=== PATIENT | female | born 1990 | race Caucasian/White ===

== ENCOUNTER → 2016-12-14 | Day surgery (SDC) | payer MEDICAID, OTHER ==
[2016-12-13 11:10] LABS: HEMATOCRIT 41.1 % (36.0-47.0); HEMOGLOBIN 13.7 g/dL (12.0-15.5); MEAN CORPUSCULAR HEMOGLOBIN 29.6 pg (27.0-33.4); MEAN CORPUSCULAR HGB CONC 33.3 g/dL (32.0-36.0); MEAN CORPUSCULAR VOLUME 89 fl (80-97); RED BLOOD COUNT 4.63 10^6/uL (3.72-5.28); RED CELL DISTRIBUTION WIDTH 14.6 % (11.5-14.0); WHITE BLOOD COUNT 7.4 10^3/uL (4.0-10.5)
[2016-12-13 11:16] LABS: APPEARANCE,URINE CLEAR; BILIRUBIN,URINE NEGATIVE (NEGATIVE); GLUCOSE, URINE NEGATIVE (NEGATIVE); KETONES,URINE NEGATIVE (NEGATIVE); LEUKOCYTE ESTERASE,URINE TRACE (NEGATIVE); NITRITE,URINE NEGATIVE (NEGATIVE); PROTEIN,URINE NEGATIVE (NEGATIVE); URINE SPECIFIC GRAVITY 1.005; UROBILINOGEN,URINE NEGATIVE mg/dL (<2.0)
[~2016-12-14] MED LIST: ALBUTEROL SULFATE 0.083% NEB 2.5 MG/3 ML AMPUL NEB ONE; FAMOTIDINE INJ/PF 20 MG/2 ML SDV IV ONE; LIDOCAINE 0.5% INJ-PF (5 MG/ML) 50 ML SDV INJ PRN; RINGERS SOLUTION,LACTATED 1,000 ML IV PRN; SCOPOLAMINE HYDROBROMIDE 1.5 MG PATCH.TD72 ONE
[2016-12-14 08:16] VITALS: BP 126/78
== END ==
LOC: OROUT 06:51
PROVIDERS: ATTEND Obstetrics & Gynecology
DX: Z30.2 Encounter for sterilization (principal); F17.210 Nicotine dependence, cigarettes, uncomplicated; Z53.9 Procedure and treatment not carried out, unspecified reason
CPT/HCPCS: 86900; 86901; 36415 ×2; 86850; 84702; 85027; 81005; 81025; J3490; S0028

== ENCOUNTER 2017-04-19 06:42 | Day surgery (SDC) | payer MEDICAID ==
[2017-04-16 09:17] LABS: HEMATOCRIT 39.8 % (36.0-47.0); HEMOGLOBIN 13.4 g/dL (12.0-15.5); HGB HCT DIFFERENCE 0.4; MEAN CORPUSCULAR HEMOGLOBIN 29.5 pg (27.0-33.4); MEAN CORPUSCULAR HGB CONC 33.6 g/dL (32.0-36.0); MEAN CORPUSCULAR VOLUME 88 fl (80-97); RED BLOOD COUNT 4.53 10^6/uL (3.72-5.28); RED CELL DISTRIBUTION WIDTH 14.2 % (11.5-14.0); WHITE BLOOD COUNT 7.2 10^3/uL (4.0-10.5)
[2017-04-16 09:30] LABS: APPEARANCE,URINE CLEAR; BILIRUBIN,URINE NEGATIVE (NEGATIVE); GLUCOSE, URINE NEGATIVE (NEGATIVE); KETONES,URINE NEGATIVE (NEGATIVE); LEUKOCYTE ESTERASE,URINE NEGATIVE (NEGATIVE); NITRITE,URINE NEGATIVE (NEGATIVE); PROTEIN,URINE NEGATIVE (NEGATIVE); UROBILINOGEN,URINE NEGATIVE mg/dL (<2.0)
[2017-04-16 09:40] LABS: URINE SPECIFIC GRAVITY 1.008
[~2017-04-19 06:42] MED LIST changes: -ALBUTEROL SULFATE 0.083% NEB 2.5 MG/3 ML AMPUL NEB ONE; -FAMOTIDINE INJ/PF 20 MG/2 ML SDV IV ONE; +LACTATED RINGERS 1000 ML IV PRN; -LIDOCAINE 0.5% INJ-PF (5 MG/ML) 50 ML SDV INJ PRN; +LIDOCAINE 0.5% INJ-PF (5 MG/ML) 50 ML SDV SUBCUT PRN; -RINGERS SOLUTION,LACTATED 1,000 ML IV PRN; -SCOPOLAMINE HYDROBROMIDE 1.5 MG PATCH.TD72 ONE
[2017-04-19] MEDS ORDERED: ALBUTEROL SULFATE 0.083% NEB 2.5 MG/3 ML AMPUL NEB ONE (07:19)
[2017-04-19] MEDS ORDERED: FENTANYL CITRATE INJ/PF 100 MCG/2 ML AMPUL ONE ×2 (07:19→08:25)
[2017-04-19] MEDS ORDERED: ACETAMINOPHEN 100 ML IV ONE (07:20)
[2017-04-19] MEDS ORDERED: MIDAZOLAM 2 MG/2 ML INJ ONE (07:20)
[2017-04-19] MEDS ORDERED: MORPHINE SULFATE 10 MG/ML INJ ONE (07:20)
[2017-04-19] MEDS ORDERED: PROPOFOL INJ 200 MG/20 ML VIAL IV ONE (07:20)
[2017-04-19] MEDS ORDERED: FAMOTIDINE INJ/PF 20 MG/2 ML SDV IV ONE (07:21)
[2017-04-19] MEDS ORDERED: CEFAZOLIN INJ 1 GM VIAL ONE (07:40)
[2017-04-19] MEDS ORDERED: SCOPOLAMINE HYDROBROMIDE 1.5 MG PATCH.TD72 TD ONE (07:45)
[2017-04-19] MEDS ORDERED: PROMETHAZINE HCL INJ 25 MG/1 ML VIAL IV PRN ×2 (08:21)
[2017-04-19] MEDS ORDERED: MORPHINE SULFATE 10 MG/ML INJ IV PRN (08:21)
[2017-04-19] MEDS ORDERED: MEPERIDINE HCL/PF INJ 25 MG/1 ML DISP.SYRIN IV PRN (08:21)
[2017-04-19] MEDS ORDERED: FENTANYL CITRATE INJ/PF 100 MCG/2 ML AMPUL IV PRN ×3 (08:21)
[2017-04-19] MEDS ORDERED: DIPHENHYDRAMINE HCL 50 MG/ML VIAL IV PRN (08:21)
[2017-04-19] MEDS ORDERED: OXYCODONE-ACETAMINOPHEN 5-325 MG TABLET PO PRN ×4 (08:21→09:06)
[2017-04-19] MEDS ORDERED: MORPHINE SULFATE 10 MG/ML INJ IM PRN (09:05)
[2017-04-19] MEDS ORDERED: IBUPROFEN 800 MG TABLET PO PRN (09:05)
[2017-04-19 10:14] VITALS: BP 126/79
[2017-04-19] MEDS ORDERED: ROCURONIUM BROMIDE INJ 50 MG/5 ML VIAL IV ONE (14:21)
[2017-04-19] MEDS ORDERED: LIDOCAINE 2% INJ-PF (20 MG/ML) 10 ML AMPUL ONE (14:21)
[2017-04-19] MEDS ORDERED: NEOSTIGMINE METHYLSULFATE 10 MG/10 ML VIAL ONE (14:21)
[2017-04-19] MEDS ORDERED: KETOROLAC TROMETHAMINE 60 MG/2 ML SDV ONE (14:21)
[2017-04-19] MEDS ORDERED: DEXAMETHASONE SOD PHOSPHATE INJ 4 MG/1 ML VIAL ONE (14:21)
[2017-04-19] MEDS ORDERED: PHENYLEPHRINE HCL INJ/PF 10 MG/1 ML SDV ONE (14:21)
[2017-04-19] MEDS ORDERED: SUCCINYLCHOLINE CHLORIDE INJ 200 MG/10 ML VIAL ONE (14:21)
[2017-04-19] MEDS ORDERED: GLYCOPYRROLATE INJ 0.4 MG/2 ML VIAL ONE (14:21)
[2017-04-19] MEDS ORDERED: ONDANSETRON HCL INJ/PF 4 MG/2 ML SDV ONE (14:21)
--- NOTE | 2017-05-29 10:23 | OPERATIVE REPORT E ---
Operative Report NAME: REJI DELGADO : 1990 AGE: 26Y DATE OF SURGERY: 04/19/2017 ROOM: PREOPERATIVE DIAGNOSIS: Patient desiring sterilization. POSTOPERATIVE DIAGNOSIS: Patient desiring sterilization. SURGEON: Enrrique Calzada D.O. ARCHITECTURAL TECHNICIAN: None. PROCEDURE: Bilateral salpingectomy. ANESTHESIA: General endotracheal anesthesia. ESTIMATED BLOOD LOSS: Less than 25 mL. PATHOLOGY: Bilateral fallopian tubes. FINDINGS: Normal pelvic anatomy. DESCRIPTION OF PROCEDURE: The patient was taken to the operating room where she was placed in the dorsal supine position upon the operating room table. She was then prepped and draped in normal sterile fashion after a general endotracheal anesthesia was administered. She was placed in the dorsal lithotomy position. An open-sided speculum was then placed inside the patient's vagina. The cervix was easily visualized and grasped upon the anterior lip with a single-toothed tenaculum. An Amelia uterine manipulator was placed inside the uterus without difficulty. The single-toothed tenaculum and speculum were then removed from the patient's vagina. The surgeon then changed gloves. A 5 mm incision was made at the base of the patient's umbilicus where a 5 mm direct Optiview scope was passed through this incision and the peritoneal cavity. Once inside the peritoneal cavity, CO2 gas was turned on and opening pressures were noted to be less than 5. The patient's abdomen was then allowed to fill with CO2 gas. Following this, a 5 mm incision with a 5 mm port was placed in the left lower quadrant and the right lower quadrants under direct visualization without evidence of trauma or injury. Following this, using the Harmonic device, a bilateral salpingectomy was performed with excellent hemostasis. The tubes were removed through the ports in their entirety. The patient's abdominal pressure was taken down to approximately 5 and revealed excellent hemostasis of the pedicle sites. Following this, all ports and gas and instruments were removed from the patient's abdomen. The skin was then closed with Dermabond. Then, the uterine manipulator was removed without difficulty. At this point in time, the procedure was terminated. All sponge, lap, and needle counts were correct x2. The patient tolerated the procedure well. The patient was taken to the recovery room in stable condition. DICTATING PHYSICIAN: Enrrique Calzada DO [id number] PHY#: [id number] ID: [id number] JOB#: [id number] ACCT: [id number] cc:Enrrique Calzada D.O. >
== END 2017-04-19 10:10 | disposition home or self-care (01) ==
LOC: OROUT 06:42
PROVIDERS: ATTEND Obstetrics & Gynecology
PROC: 0UT74ZZ Resection of Bilateral Fallopian Tubes, Percutaneous Endoscopic Approach (ICD-10-PCS; principal; 2017-04-19 07:30)
DX: Z30.2 Encounter for sterilization (principal); F17.210 Nicotine dependence, cigarettes, uncomplicated
CPT/HCPCS: 36415; 85027; 81005; 81025; 88302 ×2; 58661; J2250; J0690; J3490 ×3; J1100; J1885; J3010; J2270; J2370; J0330; J2405; J2704; S0028; J0131; 840

== ENCOUNTER → 2017-05-07 | Outpatient (CLI) | payer MEDICAID ==
--- NOTE | 2017-05-07 16:09 | RADIOLOGY REPORT (SQ) ---
EXAM DESCRIPTION: KNEE RIGHT 4 VIEWS COMPLETED DATE/TIME: 05/07/2017 2:23 pm REASON FOR STUDY: PAIN IN RIGHT KNEE COMPARISON: None. TECHNIQUE: Four views study of the right knee LIMITATIONS: None. FINDINGS: No acute fracture identified. Bony structures and joint spaces intact. IMPRESSION: No acute fractures identified. TECHNICAL DOCUMENTATION: JOB ID: [id number] [employer]- All Rights Reserved
--- NOTE | 2017-05-07 16:10 | RADIOLOGY REPORT (SQ) ---
EXAM DESCRIPTION: KNEE LEFT 4 VIEWS COMPLETED DATE/TIME: 05/07/2017 2:24 pm REASON FOR STUDY: PAIN IN LEFT KNEE COMPARISON: None. TECHNIQUE: 4 study left knee LIMITATIONS: None. FINDINGS: No acute fractures identified. Bony structures and joint spaces intact. IMPRESSION: No acute fracture identified. TECHNICAL DOCUMENTATION: JOB ID: [id number] [employer]- All Rights Reserved
== END ==
LOC: OD 13:50
PROVIDERS: ATTEND Physician Assistant
DX: M25.561 Pain in right knee (principal); M25.562 Pain in left knee

== ENCOUNTER → 2017-06-05 | Outpatient (CLI) | payer MEDICAID ==
--- NOTE | 2017-06-05 11:17 | RADIOLOGY REPORT (SQ) ---
EXAM DESCRIPTION: FOOT BILATERAL 3 VIEWS COMPLETED DATE/TIME: 06/05/2017 10:56 am REASON FOR STUDY: YOGI FOOT PAIN M79.671 PAIN IN RIGHT FOOT M79.672 PAIN IN LEFT FOOT COMPARISON: None. NUMBER OF VIEWS: Three views. TECHNIQUE: AP, lateral and oblique radiographic images acquired of the right and left foot. LIMITATIONS: None. FINDINGS: MINERALIZATION: Normal. BONES: There is a small exostosis arising from the head of the right 2nd metatarsal laterally. No ot her osseous abnormality is seen. JOINTS: No effusions. SOFT TISSUES: No soft tissue swelling. No foreign body. OTHER: No other significant finding. IMPRESSION: 1. There is a small exostosis arising from the head of the right 2nd metatarsal. 2. No abnormality is seen on the left. TECHNICAL DOCUMENTATION: JOB ID: [id number] [employer]- All Rights Reserved
== END ==
LOC: OD 10:38
PROVIDERS: ATTEND Physician Assistant
DX: M79.672 Pain in left foot (principal); M79.671 Pain in right foot

== ENCOUNTER 2019-04-03 17:22 | Emergency (ER) | payer SELFPAY ==
[2019-04-03 17:44] VITALS: BP 129/85
--- NOTE | 2019-04-03 18:14 | ER Document Report ---
HPI - HPI Patient complains to provider of: BILATERAL KNEE PAIN Time Seen by Provider: 04/03/19 18:02 Onset: Other Onset/Duration: Persistent Severity: Severe Pain Level: 3 Context: Patient presents emergency department with complaints of bilateral knee pain. Patient reports difficulty walking sitting bending. Patient reports history of right knee pain since she was in the . Reports she hurt her right knee about a 1 month ago. Also reports 2 weeks ago she had her left knee. Now she has pain to both knees. Patient is very tearful. Denies other symptoms such as fever vomiting diarrhea. She reports she was evaluated by primary care provider and provided with Voltaren cream. She reports not helping the pain. She reports nothing is helping the pain. Associated Symptoms: None Exacerbated by: Movement, Other - SQUATTING Relieved by: Denies Similar symptoms previously: Yes Recently seen / treated by doctor: No - REPRODUCTIVE Reproductive: DENIES: : Past Medical History - General Information source: Patient Last Menstrual Period: February - Social History Smoking Status: Unknown if Ever Smoked Cigarette use (# per day): No Frequency of alcohol use: None Drug Abuse: None Lives with: Family Family History: None Patient has suicidal ideation: No Patient has homicidal ideation: No - Past Medical History Cardiac Medical History: Denies: Hx Coronary Artery Disease, Hx Heart Attack, Hx Hypertension Pulmonary Medical History: Denies: Hx Asthma, Hx Bronchitis, Hx COPD, Hx Pneumonia Neurological Medical History: Denies: Hx Cerebrovascular Accident, Hx Seizures Musculoskeletal Medical History: Denies Hx Arthritis Past Surgical History: Reports: Hx Orthopedic Surgery - Immunizations Hx Diphtheria, Pertussis, Tetanus Vaccination: Yes Vertical Provider Document - CONSTITUTIONAL Agree With Documented VS: Yes Exam Limitations: No Limitations General Appearance: WD/WN, No Apparent Distress - Patient is tearful - INFECTION CONTROL TRAVEL OUTSIDE OF THE [place] IN LAST 30 DAYS: No - HEENT HEENT: Atraumatic, Normocephalic - NECK Neck: Supple - RESPIRATORY Respiratory: No Respiratory Distress - CARDIOVASCULAR Cardiovascular: Regular Rate - MUSCULOSKELETAL/EXTREMETIES Musculoskeletal/Extremeties: MAEW, FROM, Tender - Patient complains of bilateral knee pain. No obvious deformity no erythema no swelling no warmth full range of motion. - NEURO Level of Consciousness: Awake, Alert, Appropriate Motor/Sensory: No Motor Deficit - DERM Integumentary: Warm, Dry Course - Re-evaluation Re-evalutation: 04/03/19 18:36 Patient is very tearful we will do bilateral knee x-rays to check for arthritis questionable effusion and provide patient with pain medication Toradol. 04/03/19 18:43 Patient has decided she does not want to have the knee x-ray. She reports she will follow-up with her primary care provider tomorrow. She has received a Toradol injection. Patient was instructed on the importance of follow-up especially with orthopedics for further evaluation she verbalized understanding to all instructions. Dictation of this chart was performed using voice recognition software; therefore, there may be some unintended grammatical errors. - Vital Signs Vital signs: Temp Pulse Resp BP Pulse Ox 99.4 F 80 16 129/85 H 100 04/03/19 17:43 04/03/19 17:43 04/03/19 17:43 04/03/19 17:43 04/03/19 17:43 Discharge - Discharge Clinical Impression: Bilateral knee pain Qualifiers: Chronicity: acute Qualified Code(s): M25.561 - Pain in right knee; M25.562 - Pain in left knee Condition: Stable Disposition: HOME, SELF-CARE Instructions: Toradol Injection (OM) Additional Instructions: *You have been evaluated for bilateral knee pain Follow-up with your primary care provider for a referral to orthopedics take medication as prescribed Return to the emergency department for worsening condition increased pain concerns Monitor your blood pressure. Your blood pressure was elevated today. This may be because you were anxious, in pain or because you need medication. It is important to follow up with your primary care provider for full evaluation. Prescriptions: Ketorolac Tromethamine [Toradol 10 mg Tablet] 10 mg PO Q6HP PRN #10 tablet PRN Reason: Forms: Elevated Blood Pressure Referrals: WALTER RAMIREZ NP [NURSE PRACTITIONER] - Follow up in 3-5 days
[2019-04-03] MEDS ORDERED: KETOROLAC TROMETHAMINE 60 MG/2 ML SDV IM ONE (18:33)
== END 2019-04-03 18:45 | disposition home or self-care (01) ==
LOC: ER 17:22
DX: M25.561 Pain in right knee (principal); M25.562 Pain in left knee
CPT/HCPCS: 99283; 96372; J1885

== ENCOUNTER 2019-07-21 19:15 | Emergency (ER) | payer MEDICAID ==
[2019-07-21 19:57] VITALS: BP 133/81
[2019-07-21] MEDS ORDERED: HYDROCODONE/ACETAMINOPHEN 5-325 MG TABLET PO ONE (20:13)
[2019-07-21] MEDS ORDERED: LIDOCAINE 2% VISCOUS SOLN 20 ML UDCUP PO ONE (20:13)
--- NOTE | 2019-07-21 20:19 | ER Document Report ---
ED Oral Problem - General Chief Complaint: Toothache Stated Complaint: JAW PAIN,HEADACHE Time Seen by Provider: 07/21/19 20:12 Primary Care Provider: GWENDOLYN PEREZ DO [NO LOCAL MD] - Follow up as needed Mode of Arrival: Ambulatory Information source: Patient Notes: 29-year-old female presented to ED for dental pain. She went to the dentist today and was told that the nerve was but she is continued to have throbbing pain. She states the tooth was filled recently by the same dentist she saw today. She states the pain is now causing her to have pain in the top and bottom jaw. It is tooth #15. Patient is alert oriented respirations regular and unlabored speaking in full sentences walks with even steady gait. He is here with her and family. TRAVEL OUTSIDE OF THE [place] IN LAST 30 DAYS: No - HPI Patient complains to provider of: Toothache Onset: Other Onset: Gradual Quality of pain: Sharp, Throbbing Severity: Moderate Pain Level: 3 Associated symptoms: Toothache Worsened by: Cold Similar symptoms previously: Yes Recently seen / treated by doctor/dentist: Yes - Related Data Allergies/Adverse Reactions: No Known Allergies Allergy (Verified 04/03/19 18:17) Past Medical History - General Information source: Patient - Social History Smoking Status: Current Every Day Smoker Cigarette use (# per day): Yes - Half pack a day Chew tobacco use (# tins/day): No Smoking Education Provided: Yes - 4 minutes Frequency of alcohol use: None Drug Abuse: None Occupation: Mom Lives with: Family Family History: None - Past Medical History Cardiac Medical History: Reports: None Pulmonary Medical History: Reports: None EENT Medical History: Reports: None Neurological Medical History: Reports: None Endocrine Medical History: Reports: None Renal/ Medical History: Reports: None Malignancy Medical History: Reports: None GI Medical History: Reports: None Musculoskeletal Medical History: Reports Hx Musculoskeletal Trauma Skin Medical History: Reports None Psychiatric Medical History: Reports: None Traumatic Medical History: Reports: Hx Fractures Infectious Medical History: Reports: None Past Surgical History: Reports: Hx Oral Surgery - Dental surgery, Hx Vascular Surgery - Vein removed from neck - Immunizations Immunizations up to date: Yes Hx Diphtheria, Pertussis, Tetanus Vaccination: Yes Review of Systems - Review of Systems Constitutional: No symptoms reported EENT: Mouth pain, Dental problem Cardiovascular: No symptoms reported Respiratory: No symptoms reported Gastrointestinal: No symptoms reported Genitourinary: No symptoms reported Female Genitourinary: No symptoms reported Musculoskeletal: No symptoms reported Skin: No symptoms reported Hematologic/Lymphatic: No symptoms reported Neurological/Psychological: No symptoms reported -: Yes All other systems reviewed and negative Physical Exam - Vital signs Vitals: Temp Pulse Resp BP Pulse Ox 97.9 F 72 16 133/81 H 97 07/21/19 19:56 07/21/19 19:56 07/21/19 19:56 07/21/19 19:56 07/21/19 19:56 Interpretation: Normal - General General appearance: Appears well, Alert - HEENT Head: Normocephalic, Atraumatic Eyes: Normal Pupils: PERRL Ears: Normal External canal: Normal Tympanic membrane: Normal Sinus: Normal Nasal: Normal Mouth/Lips: Caries Teeth diagram: 1 - Dentist has told her she needs to go to an oral surgeon to have the tooth removed. He already put her on amoxicillin. - Respiratory Respiratory status: No respiratory distress Chest status: Nontender Breath sounds: Normal Chest palpation: Normal - Cardiovascular Rhythm: Regular Heart sounds: Normal auscultation Murmur: No - Abdominal Inspection: Normal Distension: No distension Bowel sounds: Normal Tenderness: Nontender Organomegaly: No organomegaly - Back Back: Normal, Nontender - Extremities General upper extremity: Normal inspection, Nontender, Normal color, Normal ROM, Normal temperature General lower extremity: Normal inspection, Nontender, Normal color, Normal ROM, Normal temperature, Normal weight bearing. No: Angelika's sign - Neurological Neuro grossly intact: Yes Cognition: Normal Orientation: AAOx4 Timi Coma Scale Eye Opening: Spontaneous Timi Coma Scale Verbal: Oriented Timi Coma Scale Motor: Obeys Commands Timi Coma Scale Total: 15 Speech: Normal Motor strength normal: LUE, RUE, LLE, RLE Sensory: Normal - Psychological Associated symptoms: Normal affect, Normal mood - Skin Skin Temperature: Warm Skin Moisture: Dry Skin Color: Normal Course - Re-evaluation Re-evalutation: 07/21/19 20:23 Patient was seen by a dentist and started on amoxicillin. She is already been told she needs to get a referral to oral surgery to have the tooth removed. She states she has been having the pain for little over a week and is been alternating Tylenol and Motrin. I have treated her with one New Castle in the emergency room and viscous lidocaine. She has been instructed to follow-up with her primary care or a dentist for her pain. Presentation is most consistent with likely an infected tooth. Airway is patent. Vitals within normal limits. Patient is able swallow without any difficulty. There is no significant facial swelling. No evidence of Jose De Jesus angina, apical abscess, or airway obstruction. Patient will be started on antibiotics. I've instructed to follow-up with dentistry as earliest ability for definitive management. At this time will discharge with return precautions and follow-up recommendations. Verbal discharge instructions given a the bedside and opportunity for questions given. Medication warnings reviewed. Patient is in agreement with this plan and has verbalized understanding of return precautions and the need for primary care follow-up in the next 24-72 hours. - Vital Signs Vital signs: Temp Pulse Resp BP Pulse Ox 97.9 F 72 16 133/81 H 97 07/21/19 19:56 07/21/19 19:56 07/21/19 19:56 07/21/19 19:56 07/21/19 19:56 Discharge - Discharge Clinical Impression: Pain due to dental caries Condition: Stable Disposition: HOME, SELF-CARE Additional Instructions: TOOTHACHE: Your pain is due to dental decay. The tooth must be repaired in order for you to feel better. You will, therefore, be referred to a dentist. We do not have dentists on the staff at [facility]. Severe swelling or drainage around a tooth usually means a dental abscess. This also requires evaluation and treatment by the dentist, but antibiotics may be prescribed while awaiting dental treatment. You should be rechecked immediately if you develop major swelling of the face, increasing pain, a lump in the jaw or gums, headache, difficulty swallowing, or fever. ORAL NARCOTIC MEDICATION: You have been given a [place] for pain control. This medication is a narcotic. It's best taken with food, as nausea can result if taken on an empty stomach. Don't operate machinery or drive within six hours of taking this medication. Do not combine this medicine with alcohol, or with any medication which can cause sedation (such as cold tablets or sleeping pills) unless you get permission from the physician. Narcotics tend to cause constipation. If possible, drink plenty of fluids and eat a diet high in fiber and fruits. Please be aware that prescription narcotics also have the potential for ab use. People become addicted to these medications because of the general sense of wellbeing that they induce. This feeling along with a significant reduction in tension, anxiety, and aggression provides a stimulating seductive quality to these drugs. Once your pain is under control, we encourage you to discard your unused narcotics. Please take your antibiotics as prescribed. You were given a New Castle in the emergency room for your pain. You will need to follow up with your primary md or dentist for further pain control for dental pain I have given you a syringe of viscous lidocaine. Place a small amount on your finger and apply it to the gums surrounding the sore tooth. You can do this every 3-4 hours for your pain until he can follow-up with primary care or a dentist. FOLLOW-UP CARE: You have been referred for follow-up care to the dentists listed below. Call the dentists office for an appointment as you were instructed or within the next two days. If you experience worsening or a significant change in your symptoms, notify the physician immediately or return to the Emergency Department at any time for re-evaluation. [facility] [address] [place] [address] [facility] [place] [address] [facility] [address] [facility] [address] [email or web address] [address] [place] [address] Sunday- 8:00am to 5:00 pm Will see patients from other [facility]. Charges based on income and family size and accepts Medicare, Medicaid, and Insurances Will pull molars [facility] [address] Hours of Operation 8:00 am - 4:30 pm weekdays The following dental offices accept Medicaid: [facility] [address]. [address] [place] Dr. Wolfe Dr. Ramna Jeovany Seals, Jessie, and Sly oral surgery Dr. Dan ([place]) Dr. Wu ([place]) [facility] Drs. Beckett and Shane ([place]) Dr. Garcia ([place]) [facility] Dr. Arriaga ([place]) Drs. Valdivia and ([place]) Medicaid Care Line Forms: Elevated Blood Pressure, Smoking Cessation Education Referrals: GWENDOLYN PEREZ DO [NO LOCAL MD] - Follow up as needed
== END 2019-07-21 20:30 | disposition home or self-care (01) ==
LOC: ER 19:15
DX: K02.9 Dental caries, unspecified (principal); K08.89 Other specified disorders of teeth and supporting structures; F17.210 Nicotine dependence, cigarettes, uncomplicated
CPT/HCPCS: 99282; J3490